=== PATIENT | male | born 1950 | race Caucasian/White ===

== ENCOUNTER 2016-09-04 14:00 | Inpatient (IN) | payer OTHER, MEDICARE ==
[~2016-09-04] VITALS: Ht 182.9 cm; Wt 90.6 kg
--- NOTE | ~2016-09-04 | OR ---
[facility] AGE: 66 Y [address] ROOM: [address] [address] LOCATION: [facility] ADMIT DATE: 09/17/2016 OR/Procedure Report DISCHARGE DATE: FAMILY PHYSICIAN: Mirlande Chaney APRN ATTENDING PHYSICIAN: SHARITA WARD SURGEON: Sharita Ward MD MOTOR ASSEMBLY SUPERVISOR: 1. ESTEVAN Chan. 2. Davian Paula CST/CHEMA. DATE OF PROCEDURE: 09/17/2016 PRE-OP DIAGNOSIS: Degenerative joint disease right knee. POST-OP DIAGNOSIS: Degenerative joint disease right knee. OPERATION: Right total knee arthroplasty with computer navigation. ANESTHESIA: General endotracheal anesthesia plus adductor canal block plus subcutaneous and periarticular local anesthesia (ropivacaine with epinephrine). ESTIMATED BLOOD LOSS: Less than 10 mL. DRAIN: None. SPECIMEN: None. COMPLICATIONS: None. IMPLANT SYSTEM: [place] Triathlon. Size 6 right posterior stabilized femoral component Size 5 universal modular tibial baseplate 11 mm posterior stabilized size 5 X3 tibial polyethylene insert 35 mm oval X3 patella component (triple pegged). INDICATIONS FOR SURGERY: The patient is a 66-year-old male, who presents with advanced right knee degenerative joint disease and associated severely compromised activities of daily living. The patient has decided to proceed with knee replacement after having been thoroughly counseled regarding the associated risks, benefits, and limitations. We have specifically reviewed the risks and implications of infection, deep venous thrombosis, pulmonary embolism, mortality, neurovascular complications, blood transfusion (and associated potential for disease transmission or transfusion reaction), stiffness, instability, mechanical deterioration of the components (due to wear and or loosening), and the potential need for revision. We have also emphasized the importance of active involvement and compliance with post- PATIENT'S NAME: [facility] AGE: 66 Y [address] ROOM: [address] [address] LOCATION: [facility] ADMIT DATE: 09/17/2016 OR/Procedure Report DISCHARGE DATE: FAMILY PHYSICIAN: Mirlande Chaney APRN ATTENDING PHYSICIAN: SHARITA WARD operative physical therapy as a means of optimizing range of motion and functional recovery. Informed consent has been granted. DESCRIPTION OF PROCEDURE: The patient was positioned supine after administration of anesthesia and prophylactic antibiotics. A well-padded pneumatic tourniquet was placed around the right proximal thigh, and the right lower extremity was prepped and draped with vigilant sterile technique. The patient's name as well as the intended operative side and procedure were confirmed with a verbal time-out involving myself, the circulating nurse, the scrub nurse, and the anesthesiologist. Examination under anesthesia demonstrated no active skin lesions or masses. There was a moderate effusion. There was no erythema. There was no abnormal warmth. There were well-healed inferomedial and inferolateral arthroscopy portal scars. Range of motion under anesthesia was from an 8 degree flexion contracture to 120 degrees of flexion. There was no ligamentous insufficiency. The right lower extremity was elevated and exsanguinated with an Esmarch wrap, and the pneumatic tourniquet was inflated to 300mmHg. The knee was approached through a longitudinal midline incision. A medial parapatellar arthrotomy was performed and the patella was everted. Examination of the joint space demonstrated a moderate amount of benign-appearing translucent synovial fluid. There was generalized mild nonproliferative synovitis. The cruciate ligaments were intact. There were no loose bodies. There was mild grade 2 chondromalacia at the patella. There were small osteophytes at the superior, medial, and lateral margins of the patella. There was a 1 cm diameter region of moderate grade 3 chondromalacia at the central aspect of the femoral trochlea. There were small osteophytes at the medial and lateral margins of the femoral trochlea. There was full-thickness loss of articular cartilage involving 90% of the medial femoral condyle and the anteromedial 70% of the medial tibial plateau. There was a large osteophyte at the medial femoral condyle. There was a small osteophyte at the medial tibial plateau. There was a small osteophyte at the lateral femoral condyle. There was a small osteophyte at the lateral tibial plateau. There was a 2 x 5 mm diameter region of full-thickness articular cartilage loss at the medial aspect of the lateral femoral condyle. There was mild grade 3 chondromalacia at the medial half of the lateral tibial plateau. There was complex degenerative tearing at the posterior horn of the medial meniscus. There was mild inner perimeter tearing at the lateral meniscus. There was mild chondrocalcinosis at the lateral meniscus. Remnants of the menisci and cruciate ligaments were excised. The SnapSense computer navigation femoral tracker was pinned in place at the distal aspect PATIENT'S NAME: MIGUEL BOJORQUEZ [facility] AGE: 66 Y [address] ROOM: [id number] [place], [place] [address] LOCATION: [facility] ADMIT DATE: 09/17/2016 OR/Procedure Report DISCHARGE DATE: FAMILY PHYSICIAN: Mirlande Chaney APRN ATTENDING PHYSICIAN: SHARITA WARD of the femoral trochlea. Absence of motion between the femur and the tracking device was confirmed manually and visually. Femoral osseous landmarks were obtained in order to calibrate the computer navigation system. Landmarks included the center of rotation of the ipsilateral hip, the center-point of the distal femur, the femoral AP axis, 57 points on the medial femoral condyle articular surface, and 57 points on the lateral femoral condyle articular surface. The SnapSense computer navigation system was subsequently utilized to position the distal femoral resection block such that the distal femoral resection was performed perfectly perpendicular to the femoral mechanical axis. The distal femoral resection was performed with a [employer] oscillating saw. The SnapSense computer navigation tibial tracker was pinned in place at the anterior aspect of the tibial plateau. Absence of motion between the tibia and the tracking device was confirmed manually and visually. Tibial osseous landmarks were obtained in order to calibrate the computer navigation system. Landmarks included the center-point of the tibial plateau, the AP tibial axis, 57 points on the medial tibial plateau articular surface, 57 points on the lateral tibial plateau articular surface, the medial malleolus, and the lateral malleolus. The SnapSense computer navigation system was subsequently utilized to position the proximal tibial resection block such that the proximal tibial resection was performed perfectly perpendicular to the tibial mechanical axis. The proximal tibial resection was performed with a [employer] oscillating saw. Perpendicularity of the tibial resection with respect to the tibial shaft axis was reconfirmed by inserting a spacer- block attached to an extramedullary guide maria antonia. External rotation of the anterior and posterior femoral resections was set parallel to the epicondylar axis and carefully adjusted in order to create a rectangular flexion gap. The box resection was performed with a reciprocating saw. Anterior and posterior chamfer resections were performed with the oscillating saw. Posterior condyle osteophytes were excised with an osteotome. All other osteophytes were excised with a rongeur. Resection of all remnants of the menisci was reconfirmed. Flexion and extension gaps were confirmed to be symmetric and well balanced with a spacer-block technique. The patella resection was performed with an oscillating saw such that the composite thickness of the reconstructed patella was equivalent to the thickness of the [place] patella. Patella tracking was optimal and there was no need for a lateral retinacular release. All trial components were removed and all prepared osseous surfaces were thoroughly irrigated with pulsatile saline lavage and dried prior to cementing all three components in a single stage using Alon[employer] Simplex cement containing pre-mixed tobramycin. All extruded excess cement was removed. The entire PATIENT'S NAME: MIGUEL BOJORQUEZ [facility] AGE: 66 Y [address] ROOM: [address] [address] LOCATION: [facility] ADMIT DATE: 09/17/2016 OR/Procedure Report DISCHARGE DATE: FAMILY PHYSICIAN: Mirlande Chaney APRN ATTENDING PHYSICIAN: SHARITA WARD joint space was thoroughly inspected and thoroughly irrigated with bacteriostatic pulsatile saline lavage to assure that there was no residual debris of any sort. Final range of motion was from full extension (with no passive hyperextension) to 130 degrees of flexion. Patella tracking was reconfirmed to be optimal. There was excellent anteroposterior stability at 90 degrees of flexion. There was less than 1 mm of medial lift-off to valgus stress in full extension. There was less than 1 mm of lateral lift-off to varus stress in full extension. The arthrotomy was closed with multiple simple and [id number] interrupted #1 Vicryl. Subcutaneous tissues were thoroughly re-irrigated with bacteriostatic pulsatile saline lavage. Subcutaneous tissues were re- approximated with simple buried interrupted #0 Vicryl sutures. The skin was closed with simple buried interrupted 2-0 Vicryl sutures followed by surgical jerel. The dressing consisted of Xeroform gauze, 4x4 gauze, ABD pads and two 6-inch Chinmay Wraps. There were no intra-operative complications. It should be noted that the physician's photography assistant played an active, integral role throughout this entire operation. By providing expert retraction, they greatly facilitated and expedited safe and effective exposure of the distal femur, proximal tibia and patella for preparation and implantation of the components. They were also actively involved in the patient's positioning, prepping and draping, as well as wound closure. MD MARY NEAL/keith /[id number] d: 09/18/168 t: 09/22/16 1202, OPERATIVE SUMMARY
--- NOTE | ~2016-09-04 | DS ---
PATIENT'S NAME: MIGUEL BOJORQUEZ [facility] AGE: 66 Y [address] ROOM: [place] [address] LOCATION: [facility] ADMIT DATE: 09/17/2016 Discharge Summary DISCHARGE DATE: 09/19/2016 FAMILY PHYSICIAN: Mirlande Chaney APRN ATTENDING PHYSICIAN: Du Nazario PRIMARY DIAGNOSIS: Degenerative joint disease of the right knee. SECONDARY DIAGNOSES: 1. Hypertension. 2. History of prostate cancer. PROCEDURE PERFORMED: Right total knee arthroplasty. HISTORY: The patient is a 66-year-old male, who presents with advanced right knee degenerative joint disease and associated severely compromised activities of daily living. The patient has decided to proceed with total knee arthroplasty after having been thoroughly counseled regarding the risks, benefits, limitations and alternatives. Please refer to the outpatient clinic notes and admission history and physical for this patient. HOSPITAL COURSE: The patient underwent a right total knee arthroplasty on 09/17/2016 without complications. General endotracheal anesthesia plus adductor canal block plus subcutaneous and periarticular local anesthesia was utilized. The patient received 24 hours of perioperative prophylactic antibiotics and remained hemodynamically stable, neurovascularly intact throughout the entire hospital course. The postoperative prophylactic deep venous thrombosis prophylaxis consisted of Xarelto, early mobilization and pneumatic compression devices. Daily physical therapy for gait training, transfer training range of motion and quadriceps isometric exercises were received. The patient progressed well in physical therapy. On the date of discharge, 09/19/2016, the incision at the knee was healing well and showed no signs of infection. DISPOSITION: Home. DISCHARGE ACTIVITY: The patient is to bear weight as tolerated with range of motion and quadriceps isometric exercises as instructed. The operative extremity is to be elevated at least 90% of the day. There is to be sterile 4x4 gauze dressings to the incision daily. Dr. Nazario is to be notified immediately if there is any increased pain, fevers, chills, erythema, or drainage. DISCHARGE MEDICATIONS: 1. Xarelto 10 mg 1 tablet p.o. daily for 12 days for postoperative DVT PATIENT'S NAME: MIGUEL BOJORQUEZ [facility] AGE: 66 Y [address] ROOM: [address] [address] LOCATION: [facility] ADMIT DATE: 09/17/2016 Discharge Summary DISCHARGE DATE: 09/19/2016 FAMILY PHYSICIAN: Mirlande Chaney APRN ATTENDING PHYSICIAN: Du Nazario. 2. Hydromorphone 2 mg 1 to 2 tablets every 4 hours p.r.n. for pain. 3. Gabapentin 300 mg 1 tablet p.o. every night for 7 days for pain. He was then instructed to continue all his other preadmission medications as instructed by his internal medicine doctor. FOLLOWUP: Followup appointment was to be with Dr. Nazario's office on 09/24/2016 for his initial postoperative evaluation with x-rays of the right knee and suture removal. DINA STACK PA-C FOR MD CHARITY NEAL/keith /[id number] d: 09/25/16 0857 t: 10/01/16 1758, DISCHARGE SUMMARY
[2016-09-05] MEDS ORDERED: PRINIVIL OR ZES10 MG PO (08:52)
[2016-09-19] MEDS ORDERED: TYLENOL EXTRA500 MG PO (09:32)
[2016-09-19] MEDS ORDERED: NEURONTIN300 MG PO (09:35)
[2016-09-19] MEDS ORDERED: COLACE100 MG PO (09:35)
[2016-09-19] MEDS ORDERED: MIRALAX17 GM PO (09:35)
[2016-09-19] MEDS ORDERED: XARELTO10 MG PO (09:36)
[2016-09-19] MEDS ORDERED: DILAUDID 2MG(HYD2 MG PO ×2 (09:40→09:43)
== END 2016-09-19 18:00 | disposition disaster alternative care site (69) | DRG 470 ==
LOC: G3N 09-17 06:55
PROVIDERS: ADMIT Orthopaedic Surgery
DX: M17.11 Unilateral primary osteoarthritis, right knee (principal); N18.3 Chronic kidney disease, stage 3 (moderate); I12.9 Hypertensive chronic kidney disease with stage 1 through stage 4 chronic kidney disease, or unspecified chronic kidney disease; Z90.79 Acquired absence of other genital organ(s)
CPT/HCPCS: C1713; C1776; J0690; J1100; J1170; J1885; J2250; J2795; J3010; J7120

== ENCOUNTER → 2016-09-06 | Outpatient (CLI) | payer OTHER, MEDICARE ==
[~2016-09-06] MED LIST: COLACE100 MG PO; DILAUDID 2MG(HYD2 MG PO; MIRALAX17 GM PO; NEURONTIN300 MG PO; PRINIVIL OR ZES10 MG PO; TYLENOL EXTRA500 MG PO; XARELTO10 MG PO
== END | disposition disaster alternative care site (69) ==
LOC: LGSMG 10:13
PROVIDERS: Internal Medicine
DX: Z01.812 Encounter for preprocedural laboratory examination (principal)

== ENCOUNTER → 2016-09-06 | Outpatient (CLI) | payer OTHER, MEDICARE | END | disposition disaster alternative care site (69) | LOC: GNJRC 10:05 | DX: Z01.812 Encounter for preprocedural laboratory examination (principal); M17.11 Unilateral primary osteoarthritis, right knee ==